=== PATIENT | male | born 1960 | race Caucasian/White ===

== ENCOUNTER 2018-12-26 18:59 | Emergency (ER) | payer MEDICAID ==
[~2018-12-26] VITALS: Ht 190.5 cm; Wt 65.5 kg
[2018-12-27] MEDS ORDERED: normal saline 1000ml 1,000 ML IV ONE (01:40)
[2018-12-27 02:19] LABS: BASOPHILS # (AUTO) 0.1 X10'3 (0-0.2); BASOPHILS % (AUTO) 0.7 % (0-1); EOSINOPHILS % (AUTO) 0.3 % (0-6); HEMOGLOBIN 13.5 g/dl (14.0-17.9); LYMPHOCYTES # (AUTO) 0.9 X10'3 (1.1-4.8); LYMPHOCYTES % (AUTO) 10.4 % (21-51); MEAN CORPUSCULAR HEMOGLOBIN 32.2 PG (27.0-31.0); MEAN CORPUSCULAR HGB CONC 34.6 g/dL (33.0-36.5); MEAN CORPUSCULAR VOLUME 93.3 FL (78-98); MEAN PLATELET VOLUME 7.5 FL (7.4-10.4); MONOCYTES # (AUTO) 0.9 X10'3 (0-0.9); MONOCYTES % (AUTO) 9.7 % (2-12); NEUTROPHILS % (AUTO) 78.9 % (42-75); PLATELET COUNT 214 X10'3 (140-440); RED BLOOD COUNT 4.19 X10'6 (4.70-6.10); RED CELL DISTRIBUTION WIDTH 13.5 % (11.5-14.5); WHITE BLOOD COUNT 8.9 X10'3 (4.5-11.0)
[2018-12-27 02:29] LABS: ALANINE AMINOTRANSFERASE 58 U/L (12-78); ALBUMIN 2.6 G/DL (3.4-5.0); ALBUMIN/GLOBULIN RATIO 0.5 (1.1-1.5); ALKALINE PHOSPHATASE 156 IU/L (46-116); ANION GAP 9 (8-16); ASPARTATE AMINO TRANSFERASE 42 U/L (10-37); BILIRUBIN,TOTAL 0.8 MG/DL (0.1-1.0); BLOOD UREA NITROGEN 17 MG/DL (7-18); BUN/CREATININE RATIO 20.7 (5.4-32.0); CALCIUM 8.7 MG/DL (8.5-10.1); CHLORIDE 100 MMOL/L (99-107); CREATININE 0.82 MG/DL (0.60-1.10); GLUCOSE 151 MG/DL (70-104); POTASSIUM 3.5 MMOL/L (3.5-5.1); SODIUM 136 MMOL/L (135-145); TOTAL CARBON DIOXIDE 26.9 MMOL/L (24-32); TOTAL PROTEIN 7.7 G/DL (6.4-8.2); eGFR > 90 ML/MIN
[2018-12-27 02:40] LABS: D-DIMER 2.09 MG/L FEU (0-0.50); PROTHROMBIN TIME 10.5 SECONDS (9.0-12.0)
[2018-12-27] MEDS ORDERED: iohexol 350MG/ML 100ml bottle IV ONE (02:58)
[2018-12-27] MEDS ORDERED: LEVO750T21 PO (04:27)
[2018-12-27] MEDS ORDERED: levoFLOXACIN 750MG TABLET PO ONE (04:30)
[2018-12-27 04:45] VITALS: BP 131/87
== END 2018-12-27 04:47 | disposition home or self-care (01) ==
LOC: ER 19:00
DX: J18.9 Pneumonia, unspecified organism (principal); R91.1 Solitary pulmonary nodule; I25.10 Atherosclerotic heart disease of native coronary artery without angina pectoris; F17.200 Nicotine dependence, unspecified, uncomplicated; Z79.899 Other long term (current) drug therapy
CPT/HCPCS: 36415; 71045; 71275; 80053; 83880; 84484; 85025; 85379; 85610; 93005; 99284; Q9967

== ENCOUNTER 2022-09-28 10:54 | Inpatient (IN) | payer MEDICAID ==
[~2022-09-28] VITALS: Ht 190.5 cm; Wt 118.0 kg
[2022-09-28 11:11] LABS: BASOPHILS % (AUTO) 0.3 % (0-1); EOSINOPHILS # (AUTO) 0.1 X10'3 (0-0.9); EOSINOPHILS % (AUTO) 0.8 % (0-6); HEMATOCRIT 51.8 % (42.0-52.0); HEMOGLOBIN 17.5 g/dl (14.0-17.9); LYMPHOCYTES # (AUTO) 1.1 X10'3 (1.1-4.8); LYMPHOCYTES % (AUTO) 11.3 % (21-51); MEAN CORPUSCULAR HEMOGLOBIN 31.7 PG (27.0-31.0); MEAN CORPUSCULAR HGB CONC 33.8 g/dL (33.0-36.5); MEAN CORPUSCULAR VOLUME 93.6 FL (78-98); MEAN PLATELET VOLUME 7.1 FL (7.4-10.4); MONOCYTES # (AUTO) 0.7 X10'3 (0-0.9); MONOCYTES % (AUTO) 7.3 % (2-12); NEUTROPHILS # (AUTO) 7.8 X10'3 (1.8-7.7); NEUTROPHILS % (AUTO) 80.3 % (42-75); PLATELET COUNT 205 X10'3 (140-440); RED BLOOD COUNT 5.53 X10'6 (4.70-6.10); RED CELL DISTRIBUTION WIDTH 14.3 % (11.5-14.5); WHITE BLOOD COUNT 9.7 X10'3 (4.5-11.0)
[2022-09-28 11:33] LABS: ALANINE AMINOTRANSFERASE 193 U/L (12-78); ALBUMIN 3.6 G/DL (3.4-5.0); ALBUMIN/GLOBULIN RATIO 0.8 (1.1-1.5); ALKALINE PHOSPHATASE 128 IU/L (46-116); ANION GAP 8 (8-16); ASPARTATE AMINO TRANSFERASE 139 U/L (10-37); BILIRUBIN,TOTAL 0.9 MG/DL (0.1-1.0); BLOOD UREA NITROGEN 13 MG/DL (7-18); BUN/CREATININE RATIO 14.1 (5.4-32.0); CHLORIDE 98 MMOL/L (99-107); CREATININE 0.92 MG/DL (0.60-1.10); GLUCOSE 126 MG/DL (70-104); MAGNESIUM 1.6 MG/DL (1.5-2.4); POTASSIUM 3.8 MMOL/L (3.5-5.1); SODIUM 133 MMOL/L (135-145); TOTAL CARBON DIOXIDE 27.5 MMOL/L (24-32); TOTAL PROTEIN 8.3 G/DL (6.4-8.2); eGFR 83 ML/MIN
[2022-09-28] MEDS ORDERED: morphine 4 MG/ML inj SYRINge IV ONE (12:15)
[2022-09-28] MEDS ORDERED: ondansetron/PF 4mg/2ml inj IV ONE (12:15)
[2022-09-28] MEDS ORDERED: normal saline 1000ML IV soln IV ONE (12:15)
[2022-09-28] MEDS ORDERED: IODIXANOL 320 MG/ML INFUS..BTL 100ML IV ONE (12:48)
[2022-09-28] MEDS ORDERED: iohexol 300mg/ml 100ml inj. ONE (12:49)
[2022-09-28] MEDS ORDERED: metoclopramide 5 mg/ml inj IV ONE (14:40)
[2022-09-28] MEDS ORDERED: magnesium hydroxide 30ml (MOM) UD suspension PO PRN (17:45)
[2022-09-28] MEDS ORDERED: magnesium 4gm in 100ml NS 100 ML IV PRN (17:45)
[2022-09-28] MEDS ORDERED: haloperidol 5mg tablet PO PRN (17:45)
[2022-09-28] MEDS ORDERED: ondansetron/PF 4mg/2ml inj IV PRN (17:45)
[2022-09-28] MEDS ORDERED: morphine 2 MG/ML inj. syringe IV PRN ×2 (17:45)
[2022-09-28] MEDS ORDERED: LORazepam 2 mg/ml vial IV PRN (17:45)
[2022-09-28] MEDS ORDERED: potassium Cl 40MEQ/1/2NS 520ml 520 ML IV PRN (17:45)
[2022-09-28] MEDS ORDERED: albuterol 2.5 MG/3 ML nebule NEB PRN (17:45)
[2022-09-28] MEDS ORDERED: potassium Cl 20 mEq SR tablet PO PRN ×2 (17:45)
[2022-09-28] MEDS ORDERED: LORazepam 1 MG tablet PO PRN (17:45)
[2022-09-28] MEDS ORDERED: ipratropium/albuterol 3ml nebule NEB PRN (17:45)
[2022-09-28] MEDS ORDERED: mag hydrox/Alum hydrox/simeth 30ml oral suspension PO PRN (17:45)
[2022-09-28] MEDS ORDERED: haloperidol lactate 5mg/ml inj IM PRN (17:45)
[2022-09-28] MEDS ORDERED: NO HOME MEDS (18:13)
[2022-09-28] MEDS: normal saline 1000ml 1,000 ML IV SCH (18:14)
[2022-09-28] MEDS ORDERED: enoxaparin 40mg/0.4ml syringe SQ SCH (20:00)
[2022-09-28 20:10] VITALS: BP 144/86
[2022-09-28] MEDS: K and/or MAG REPLACEMENT MC SCH (20:29)
[2022-09-28] MEDS: thiamine 100mg tablet PO SCH (20:39)
[2022-09-28] MEDS: docusate sod 100mg capsule PO SCH (20:40)
[2022-09-28] MEDS: piperacillin/tazo 4.5gm/100ml 100 ML IV SCH (21:30)
[2022-09-28 22:00] VITALS: BP 129/73
[2022-09-29] VITALS (22 sets, daily range): BP systolic 122–163; BP diastolic 60–95
[2022-09-29 04:31] LABS: ALANINE AMINOTRANSFERASE 114 U/L (12-78); ALBUMIN 2.9 G/DL (3.4-5.0); ALBUMIN/GLOBULIN RATIO 0.7 (1.1-1.5); ALKALINE PHOSPHATASE 110 IU/L (46-116); ANION GAP 6 (8-16); ASPARTATE AMINO TRANSFERASE 62 U/L (10-37); BILIRUBIN,TOTAL 1.2 MG/DL (0.1-1.0); BLOOD UREA NITROGEN 14 MG/DL (7-18); BUN/CREATININE RATIO 13.7 (5.4-32.0); CALCIUM 8.1 MG/DL (8.5-10.1); CHLORIDE 101 MMOL/L (99-107); CREATININE 1.02 MG/DL (0.60-1.10); GLUCOSE 105 MG/DL (70-104); LIPASE 50 U/L (73-393); MAGNESIUM 1.7 MG/DL (1.5-2.4); PHOSPHORUS 2.9 MG/DL (2.3-4.5); SODIUM 134 MMOL/L (135-145); TOTAL CARBON DIOXIDE 26.7 MMOL/L (24-32); TOTAL PROTEIN 7.2 G/DL (6.4-8.2); eGFR 74 ML/MIN
[2022-09-29 04:39] LABS: BASOPHILS % (AUTO) 0.2 % (0-1); EOSINOPHILS # (AUTO) 0.1 X10'3 (0-0.9); EOSINOPHILS % (AUTO) 1.4 % (0-6); LYMPHOCYTES # (AUTO) 1.4 X10'3 (1.1-4.8); LYMPHOCYTES % (AUTO) 17.8 % (21-51); MEAN CORPUSCULAR HEMOGLOBIN 32.3 PG (27.0-31.0); MEAN CORPUSCULAR HGB CONC 34.9 g/dL (33.0-36.5); MEAN CORPUSCULAR VOLUME 92.5 FL (78-98); MEAN PLATELET VOLUME 7.5 FL (7.4-10.4); MONOCYTES # (AUTO) 0.8 X10'3 (0-0.9); MONOCYTES % (AUTO) 10.6 % (2-12); NEUTROPHILS # (AUTO) 5.5 X10'3 (1.8-7.7); PLATELET COUNT 182 X10'3 (140-440); RED BLOOD COUNT 4.97 X10'6 (4.70-6.10); RED CELL DISTRIBUTION WIDTH 14.4 % (11.5-14.5); WHITE BLOOD COUNT 7.9 X10'3 (4.5-11.0)
[2022-09-29] MEDS: normal saline 1000ml 1,000 ML IV SCH ×3 (04:49→23:56)
--- NOTE | 2022-09-29 06:24 | NUR ---
Problems reprioritized. Patient report given, questions answered & plan of care reviewed with SWAPNA ESQUIVEL.
--- NOTE | 2022-09-29 06:57 | NUR ---
Patient in room [facility]. I have received report from Jimena ESQUIVEL and had the opportunity to ask questions and assume patient care.
[2022-09-29] MEDS: docusate sod 100mg capsule PO SCH ×2 (07:35→20:48)
[2022-09-29] MEDS: multivitamins, therapeutics tablet PO SCH (07:35)
[2022-09-29] MEDS: thiamine 100mg tablet PO SCH ×2 (07:35→20:48)
[2022-09-29] MEDS: K and/or MAG REPLACEMENT MC SCH ×2 (07:47→20:42)
[2022-09-29] MEDS: nicotine 21mg patch - 24 hr TD SCH (08:00)
[2022-09-29] MEDS: piperacillin/tazo 4.5gm/100ml 100 ML IV SCH ×2 (08:24→20:47)
[2022-09-29] MEDS ORDERED: NICOTINE POLACRILEX 4 MG LOZENGE BC PRN (08:25)
[2022-09-29] MEDS ORDERED: NICOTINE POLACRILEX 2 MG LOZENGE BC PRN (08:33)
[2022-09-29] MEDS ORDERED: INDOCYANINE GREEN 25 MG/10 ML VIAL IV ONE (10:45)
[2022-09-29] MEDS ORDERED: proCHLORperazine 10 MG/2 ml inj IV PRN (15:15)
[2022-09-29] MEDS ORDERED: morphine 2 MG/ML inj. syringe IV PRN (15:15)
[2022-09-29] MEDS ORDERED: meperidine/PF 25mg/ml syringe IV PRN ×3 (15:15)
[2022-09-29] MEDS ORDERED: ringers solution, lacted 1,000 ML IV SCH (15:15)
[2022-09-29] MEDS ORDERED: ondansetron/PF 4mg/2ml inj IV PRN (15:15)
[2022-09-29] MEDS ORDERED: morphine 4 MG/ML inj SYRINge IV PRN (15:15)
[2022-09-29] MEDS ORDERED: BUPIVAcaine 0.5% inj/PF 30 ML ONE (15:20)
[2022-09-29] MEDS ORDERED: LIDOcaine 1% 30ml preserv. free vial ONE (15:20)
[2022-09-29] MEDS ORDERED: midazolam 1 mg/ML 2ml injection ONE (15:39)
[2022-09-29] MEDS ORDERED: propofol inj 20 ML IV ONE (15:39)
[2022-09-29] MEDS ORDERED: fentaNYL /PF 50mcg/ml 5ml ampule ONE (15:39)
[2022-09-29] MEDS ORDERED: BUPIVAcaine 0.5% inj/PF 30 ml vial IJ ONE (16:04)
[2022-09-29] MEDS ORDERED: dexamethasone sod phosphate 4mg/ml inj. ONE (16:48)
[2022-09-29] MEDS ORDERED: rocuronium 10mg/ml inj IV ONE (16:48)
[2022-09-29] MEDS ORDERED: ondansetron/PF 4mg/2ml inj ONE (16:48)
[2022-09-29] MEDS ORDERED: ePHEDrine 50MG/ML INJ. ONE (16:50)
[2022-09-29] MEDS ORDERED: neostigmine methylsulfate 1 MG/ML 10ml vial ONE (16:50)
[2022-09-29] MEDS ORDERED: glycopyrrolate 0.2mg/ml inj ONE (16:50)
[2022-09-29] MEDS ORDERED: HYDROcodone/acetaminophen 5mg/325mg tablet PO PRN (17:15)
[2022-09-29] MEDS ORDERED: HYDROcodone/acetaminophen 10/325mg tab PO PRN (17:15)
[2022-09-29] MEDS ORDERED: naloxone 0.4 mg/ml inj IV PRN (17:15)
--- NOTE | 2022-09-29 17:15 | NUR ---
Received from OR via SURGICAL BED, accompanied by Anesthesiologist DR AGUIAR and report given by Anesthesiolgist. PT AROUSES EASILY, S/P RA LAP ELIEZER, GENERAL ANESTHESIA, 4 ABD LAP SITES ALL CDI, ABD SOFT, PT DENIES ANY PAIN OR NAUSEA WILL CONT TO ASSESS.
--- NOTE | 2022-09-29 18:21 | NUR ---
Problems reprioritized. Patient report given, questions answered & plan of care reviewed with Rosa M ESQUIVEL.
--- NOTE | 2022-09-29 18:43 | NUR ---
Patient in room [facility]. I have received report from RENARD FROM RECOVERY ROOM AT THIS TIME& EARLIER FROM [facility] WHO HAD HIM PRIOR TO SURGERY and had the opportunity to ask questions and WILL assume patient careUPON ARRIVAL TO THE FLOOR. Addendum: 09/29/22 at 1846 by Rosa M Wilkins RN Amended: Links added.
--- NOTE | 2022-09-29 18:45 | NUR ---
Report called to receiving nurse. Transferred via SURGICAL BED TO ROOM 349A Belongings . Special Issues communicated to receiving nurse.
[2022-09-29] MEDS: acetaminophen 325mg tablet PO PRN (20:49)
[2022-09-30 02:00] VITALS: BP 150/86
--- NOTE | 2022-09-30 02:40 | NUR ---
after using brp with assist pt ambulated 3 laps around the unit. using is well. medicated per request with tylenol as pt is bound up no bm 4 days. pt without passing gas at this time. mom given earlier in shift.
[2022-09-30] MEDS: acetaminophen 325mg tablet PO PRN (03:07)
[2022-09-30 05:45] LABS: BASOPHILS % (AUTO) 0 % (0-1); EOSINOPHILS % (AUTO) 0 % (0-6); HEMATOCRIT 46.3 % (42.0-52.0); HEMOGLOBIN 16.2 g/dl (14.0-17.9); LYMPHOCYTES # (AUTO) 0.7 X10'3 (1.1-4.8); LYMPHOCYTES % (AUTO) 7.7 % (21-51); MEAN CORPUSCULAR HEMOGLOBIN 32.5 PG (27.0-31.0); MEAN CORPUSCULAR VOLUME 92.9 FL (78-98); MEAN PLATELET VOLUME 7.2 FL (7.4-10.4); MONOCYTES # (AUTO) 0.5 X10'3 (0-0.9); MONOCYTES % (AUTO) 4.8 % (2-12); NEUTROPHILS # (AUTO) 8.4 X10'3 (1.8-7.7); NEUTROPHILS % (AUTO) 87.5 % (42-75); PLATELET COUNT 205 X10'3 (140-440); RED BLOOD COUNT 4.98 X10'6 (4.70-6.10); WHITE BLOOD COUNT 9.6 X10'3 (4.5-11.0)
--- NOTE | 2022-09-30 06:02 | NUR ---
Problems reprioritized. Patient report given, questions answered & plan of care reviewed with Donald Chen. she is aware there are 4 [facility] sites cdi. Addendum: 09/30/22 at 0604 by Rosa M Wilkins RN Amended: Links added.
--- NOTE | 2022-09-30 06:19 | NUR ---
Patient in room [facility]. I have received report from ALVIN Mederos and had the opportunity to ask questions and assume patient care.
[2022-09-30 06:30] VITALS: BP 150/62
[2022-09-30 06:32] LABS: ALANINE AMINOTRANSFERASE 93 U/L (12-78); ALBUMIN 2.9 G/DL (3.4-5.0); ALBUMIN/GLOBULIN RATIO 0.6 (1.1-1.5); ALKALINE PHOSPHATASE 99 IU/L (46-116); ANION GAP 10 (8-16); ASPARTATE AMINO TRANSFERASE 54 U/L (10-37); BILIRUBIN,TOTAL 0.5 MG/DL (0.1-1.0); BLOOD UREA NITROGEN 17 MG/DL (7-18); BUN/CREATININE RATIO 16.2 (5.4-32.0); CALCIUM 8.4 MG/DL (8.5-10.1); CHLORIDE 99 MMOL/L (99-107); CREATININE 1.05 MG/DL (0.60-1.10); GLUCOSE 169 MG/DL (70-104); LIPASE 51 U/L (73-393); MAGNESIUM 2.2 MG/DL (1.5-2.4); PHOSPHORUS 3.4 MG/DL (2.3-4.5); POTASSIUM 4.4 MMOL/L (3.5-5.1); SODIUM 134 MMOL/L (135-145); TOTAL CARBON DIOXIDE 25.2 MMOL/L (24-32); TOTAL PROTEIN 7.7 G/DL (6.4-8.2); eGFR 71 ML/MIN
[2022-09-30] MEDS: multivitamins, therapeutics tablet PO SCH (07:54)
[2022-09-30] MEDS: docusate sod 100mg capsule PO SCH (07:54)
[2022-09-30] MEDS: thiamine 100mg tablet PO SCH (07:54)
[2022-09-30] MEDS: nicotine 21mg patch - 24 hr TD SCH (07:54)
[2022-09-30] MEDS: piperacillin/tazo 4.5gm/100ml 100 ML IV SCH (07:55)
[2022-09-30] MEDS ORDERED: enoxaparin 40mg/0.4ml syringe SQ SCH (08:00)
[2022-09-30] MEDS: K and/or MAG REPLACEMENT MC SCH (08:00)
[2022-09-30] MEDS ORDERED: budesonide 0.5mg/2ml UD nebule IH SCH (09:00)
[2022-09-30] MEDS: normal saline 1000ml 1,000 ML IV SCH (09:45)
[2022-09-30 10:41] VITALS: BP 151/86
[2022-09-30] MEDS: ipratropium/albuterol 3ml nebule NEB SCH ×2 (11:16→14:54)
--- NOTE | 2022-09-30 13:43 | NUR ---
O2 Sat at rest on room air:__95_% If below 89%: Recovery O2 Sat at rest on ___LPM:___%:___% via (mask/nasal cannula, etc..) No further documentation is necessary. If O2 Sat did not drop below 89% on room air,ambulate patient on room air. O2 Sat while ambulating on room air:__92_% Recovery O2 Sat while ambulating on ___LPM:___% No further documentation is necessary. If patient does not drop below 89% while ambulating, he/she does not qualify for home O2.
[2022-09-30] MEDS ORDERED: NICO-687 TD (14:06)
[2022-09-30] MEDS ORDERED: HYDR-3972 PO (14:06)
--- NOTE | 2022-09-30 15:19 | NUR ---
Patient alert and oriented in no apparent acute distress. Discussed with patent discharge information and patient verbalizes understanding of teaching. Patient states no questions. Patient ready for dc and waiting for spouse for transport home.
--- NOTE | 2022-09-30 16:36 | NUR ---
Patient dc'd with all personal belongings escorted out in wheelchair accompanied by spouse. Patient was alert and oriented no apparent acute distress at dc.
[2022-10-03] MEDS ORDERED: folic acid 1mg tablet PO SCH (08:00)
== END 2022-09-30 16:34 | disposition home or self-care (01) | DRG 263 ==
LOC: ER 10:54 → ED HOLD 17:52 → SUR 3N 20:10
PROVIDERS: ADMIT Family Medicine; ATTEND Family Medicine
PROC: BW211ZZ Computerized Tomography (CT Scan) of Abdomen and Pelvis using Low Osmolar Contrast (ICD-10-PCS; 2022-09-28)
PROC: 8E0W4CZ Robotic Assisted Procedure of Trunk Region, Percutaneous Endoscopic Approach (ICD-10-PCS; 2022-09-29)
PROC: BF121ZZ Fluoroscopy of Gallbladder using Low Osmolar Contrast (ICD-10-PCS; 2022-09-29)
PROC: 0FT44ZZ Resection of Gallbladder, Percutaneous Endoscopic Approach (ICD-10-PCS; principal; 2022-09-29 15:38)
DX: K80.00 Calculus of gallbladder with acute cholecystitis without obstruction (principal); E87.1 Hypo-osmolality and hyponatremia; F17.210 Nicotine dependence, cigarettes, uncomplicated; Z20.822 Contact with and (suspected) exposure to COVID-19; J44.1 Chronic obstructive pulmonary disease with (acute) exacerbation; Z79.899 Other long term (current) drug therapy; Z82.49 Family history of ischemic heart disease and other diseases of the circulatory system
CPT/HCPCS: 36415; 71045; 74177; 76700; 80053; 82948; 83690; 83735; 83880; 84100; 84484; 85025; 85610; 87081; 87811; 93005; 94640; 94760; 99285; A4215; A4615; A4618; A7000; G0378; J1100; J1650; J2250; J2270; J2405; J2543; J2704; J2710; J2765; J3010; J3490; J7030; J7120; Q9967; S0020

== ENCOUNTER 2023-05-14 07:39 | Day surgery (SDC) | payer MEDICAID ==
[2023-05-14] VITALS (14 sets, daily range): BP systolic 132–186; BP diastolic 80–114; PULSE 73–82; RESP 11–18; TEMP 97.6; O2SAT 72–99
[~2023-05-14] VITALS: Ht 188 cm; Wt 120.0 kg
[~2023-05-14 07:39] MED LIST: HYDR-3972 PO; NICO-687 TD; albuterol 2.5 MG/3 ML nebule NEB ONE; cefazolin 2gm/D5W 100mL 100 ML IV ONE; famotidine 20mg tablet PO ONE; ringers solution, lacted 1,000 ML IV SCH
[2023-05-14] MEDS ORDERED: famotidine 20mg tablet PO ONE (08:35)
[2023-05-14] MEDS ORDERED: NO HOME MEDS (09:41)
[2023-05-14 09:44] LABS: BASOPHILS % (AUTO) 0.3 % (0-1); EOSINOPHILS # (AUTO) 0.2 X10'3 (0-0.9); EOSINOPHILS % (AUTO) 4.8 % (0-6); LYMPHOCYTES # (AUTO) 1.1 X10'3 (1.1-4.8); MEAN CORPUSCULAR HEMOGLOBIN 32.5 PG (27.0-31.0); MEAN CORPUSCULAR HGB CONC 34.3 g/dL (33.0-36.5); MEAN CORPUSCULAR VOLUME 94.9 FL (78-98); MEAN PLATELET VOLUME 7.1 FL (7.4-10.4); MONOCYTES # (AUTO) 0.4 X10'3 (0-0.9); MONOCYTES % (AUTO) 8.3 % (2-12); NEUTROPHILS # (AUTO) 2.6 X10'3 (1.8-7.7); NEUTROPHILS % (AUTO) 60.6 % (42-75); PRE OP HEMATOCRIT 44.1 % (42.0-52.0); PRE OP HEMOGLOBIN 15.1 g/dL (14.0-17.9); PRE OP PLATELET COUNT 203 X10'3 (140-440); RED BLOOD COUNT 4.65 X10'6 (4.70-6.10); RED CELL DISTRIBUTION WIDTH 14.2 % (11.5-14.5)
[2023-05-14] MEDS ORDERED: BUPIVACAINE liposomal/PF 13.3 MG/ML vial IM ONE (10:07)
[2023-05-14] MEDS ORDERED: LIDOcaine 1% 30ml preserv. free vial ONE (10:07)
[2023-05-14] MEDS ORDERED: BUPIVAcaine/PF 2.5 mg/ml (0.25%) 30ml vial ONE (10:07)
[2023-05-14 10:08] LABS: ALBUMIN 3.3 G/DL (3.4-5.0); ALBUMIN/GLOBULIN RATIO 0.8 (1.1-1.5); ALKALINE PHOSPHATASE 113 IU/L (46-116); BLOOD UREA NITROGEN 13 MG/DL (7-18); CALCIUM 8.8 MG/DL (8.5-10.1); CHLORIDE 103 MMOL/L (99-107); CREATININE 0.93 MG/DL (0.60-1.10); PRE OP ALT 38 U/L (30-65); PRE OP ANION GAP 6 (8-16); PRE OP AST 29 U/L (10-37); PRE OP BILIRUB, TOTAL 0.5 MG/DL (0.0-1.0); PRE OP GLUCOSE 120 MG/DL (70-104); PRE OP POTASSIUM 4.4 MMOL/L (3.4-5.1); PRE OP SODIUM 137 MMOL/L (135-145); TOTAL CARBON DIOXIDE 28.3 MMOL/L (24-32); TOTAL PROTEIN 7.5 G/DL (6.4-8.2); eGFR 82 ML/MIN
[2023-05-14] MEDS ORDERED: rocuronium 10mg/ml inj IV ONE ×2 (10:19→10:22)
[2023-05-14] MEDS ORDERED: sevoflurane 250ml liquid IH ONE (10:19)
[2023-05-14] MEDS ORDERED: midazolam 1 mg/ML 2ml injection ONE (10:22)
[2023-05-14] MEDS ORDERED: propofol inj 20 ML IV ONE (10:22)
[2023-05-14] MEDS ORDERED: fentaNYL/PF 50MCG/1 ML 2ML syringe ONE (10:22)
[2023-05-14] MEDS ORDERED: ringers solution, lacted 1,000 ML IV SCH (11:20)
[2023-05-14] MEDS ORDERED: morphine 4 MG/ML inj SYRINge IV PRN (11:20)
[2023-05-14] MEDS ORDERED: meperidine/PF 25mg/ml syringe IV PRN ×3 (11:20)
[2023-05-14] MEDS ORDERED: proCHLORperazine 10 MG/2 ml inj IV PRN (11:20)
[2023-05-14] MEDS ORDERED: ondansetron/PF 4mg/2ml inj IV PRN (11:20)
[2023-05-14] MEDS ORDERED: morphine 2 MG/ML inj. syringe IV PRN (11:20)
[2023-05-14] MEDS ORDERED: neostigmine methylsulfate 1 MG/ML 10ml vial ONE (11:57)
[2023-05-14] MEDS ORDERED: dexamethasone sod phosphate 4mg/ml inj. ONE (11:57)
[2023-05-14] MEDS ORDERED: ondansetron/PF 4mg/2ml inj ONE (11:57)
[2023-05-14] MEDS ORDERED: glycopyrrolate 0.2mg/ml inj ONE (11:57)
--- NOTE | 2023-05-14 12:16 | NUR ---
Received from OR via , accompanied by Anesthesiologist DR AWAD and report given by Anesthesiolgist. VSS. IV IN LEFT WRIST 20G NO ISSUES. ON MASK AT 10 LITERS AT 99%. FRED AND ABD. [facility] Addendum: 05/14/23 at 1241 by Ina March RN Amended: Links added.
[2023-05-14] MEDS ORDERED: oxyCODONE/APAP 5-325mg tablet PO PRN (12:25)
--- NOTE | 2023-05-14 13:56 | NUR ---
PATIENT MEETS DISCHARGE CRITERIA. VSS. IV DC'D WITH NO ISSUES. ABD. [facility] INTACT. PATIENT PUT HIS DENTURES IN HIS MOUTH. I WHEELED THE PATIENT TO THE CAR AND EDUCATED THE SURVEILLANCE SYSTEMS ENGINEER ON HIS DISCHARGE INSTRUCTIONS. Addendum: 05/14/23 at 1454 by Ina March RN Amended: Links added.
== END 2023-05-14 13:56 | disposition home or self-care (01) ==
LOC: PAS 07:39
PROVIDERS: ATTEND Surgery
DX: K43.2 Incisional hernia without obstruction or gangrene (principal); E66.9 Obesity, unspecified; Z68.39 Body mass index [BMI] 39.0-39.9, adult; J44.9 Chronic obstructive pulmonary disease, unspecified; F17.210 Nicotine dependence, cigarettes, uncomplicated; Z72.89 Other problems related to lifestyle; Z90.49 Acquired absence of other specified parts of digestive tract
CPT/HCPCS: 36415; 49615; 64488; 80053; 82948; 85025; 93005; 94640; 94760; C1781; C9290; J0690; J1100; J2175; J2250; J2405; J2704; J2710; J3010; J3490; J7030; J7120; Z7506; Z7508; Z7512; A4215; A4615; A4618